=== PATIENT | female | born 1980 | race Caucasian/White ===

== ENCOUNTER 2024-05-16 20:53 | Emergency (ER) | payer MEDICARE, SELFPAY ==
[2024-05-16 21:29] VITALS: BP 99/64; PULSE 100; RESP 18; O2SAT 97; BMI 28.3
[2024-05-16 21:47] LABS: Microscopic, Urine URINE MICROSCOPIC (MICROSCOPIC)
--- NOTE | 2024-05-16 21:48 | HMH.EDGENADL ---
Discharge Plan Disposition Patient Disposition: Home, Self-Care Prescriptions Prescriptions: New cefdinir 300 mg capsule 300 mg PO BID 7 Days Qty: 14 0RF Referrals Follow up/Referrals: Provider,Referral, [Primary Care Provider] - See instructions Activity Restrictions/Add. Instructions Additional Instructions/Restrictions: Take your antibiotic twice daily for 7 days. This will treat your urinary tract infection. Call [facility], [facility], or [facility] neurosurgery to schedule follow-up appointment. Tell them that you had a shunt placed, were seen in the emergency department for headache on 05/16 and workup was negative. You will need to be followed up in case you need care for the shunt in the future. Call your family doctor to establish care for this visit to the emergency department and schedule follow-up within 48 hours to ensure improvement. If you have any worsening of your condition or any other concerning signs or symptoms, return to the emergency department or your primary care doctor for further evaluation. Clinical Impressions Clinical Impression: Urinary tract infection Instructions Patient Instructions: DI for Urinary Tract Infection (UTI), DI for Urinary Tract Infection in Children Print Language Print Language: Kiswahili Discharge ED Provider: Eduin Jara General Adult HPI <Tao Roach ([facility]), [employer]KER - Last Filed: 05/16/24 22:21> General Chief complaint: Urogenital-Female Stated complaint: poss UTI , severe pain in head Time Seen by Provider: 05/16/24 21:37 Mode of Arrival: Ambulatory Description of Symptoms (Recalled from ER Triage Doc. by RN): pt states she thinks she has a uti. [facility] but it has not gotten better. pt states shes had a fever today. Pt also complaining of right sided head pain in behind the right eye. pt has a vp platforms shunt. History of Present Illness HPI narrative: 43-year-old female presents for frequency, foul-smelling urine, urgency, and burning for over a week but is not getting any better. 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 Patient states that shunt was placed in 2008 due to Chiari malformation, patient states she has not been followed up because the doctor is no longer practicing Related Data Previous Rx's ?Medication ?Instructions ?Recorded cefdinir 300 mg capsule 300 mg PO BID 7 days #14 caps 05/17/24 Allergies Allergy/AdvReac Type Severity Reaction Status Date / Time deflazacort (From Emflaza) Allergy Unknown Verified 05/16/24 22:27 allergy reaction guaifenesin (From Robitussin) Allergy Unknown Verified 05/16/24 22:27 allergy reaction metformin (From Glucophage) Allergy Unknown Verified 05/16/24 22:27 allergy reaction PFSH <[facility] [employer] - Last Filed: 05/16/24 22:21> PFS Disclaimer: The information contained in this section may have been updated after the patient was seen, as this information can be updated by other users. Social History (Updated 05/16/24 @ 22:21 by Tao Roach ([facility]), [employer]) Smoking Status: Never smoker alcohol intake: never current occupational status: employed Travel in the last 8 weeks: None Have you lived/traveled outside [place] in past 30 days?: No Contact w/someone who lives/traveled outside US past 30 days?: No Exposure to someone with infectious disease in past 14 days?: No Do you have a fever (greater than 100.4 F or 38 C)?: No Have you tested positive for COVID-19: No Exposed to someone with COVID-19 in past 14 days?: No Do you have a sore throat?: No Do you have a cough?: No Do you have any weakness?: No Do you have any diarrhea?: No Are you experiencing any unusual bleeding?: No Do you have any muscle aches/pain?: No Do you have any abdominal pain?: No Are you experiencing loss of taste or smell?: No <[facility] [employer] - Last Filed: 05/16/24 22:21> ROS Obtained: Yes Systems reviewed as appropriate & no additional complaints except as documented Constitutional Constitutional: Reports system reviewed and no additional complaints, except as documented, Reports as per HPI, Reports fever(s) and Reports headache(s) Eyes Eyes: Reports system reviewed and no additional complaints, except as documented, Reports as per HPI and Reports eye pain ENT Ears, Nose, Mouth, and Throat: Reports headache(s) Neurologic Neurologic: Reports system reviewed and no additional complaints, except as documented, Reports as per HPI and Reports headache(s) Physical Exam <Tao Paulsonjarvis ([facility]), [employer]KER - Last Filed: 05/16/24 22:21> General General appearance: alert and in no apparent distress Head Head exam: atraumatic Eye Eye exam: Present normal appearance and PERRL ENT ENT exam: Present normal exam Respiratory Respiratory exam: Present normal lung sounds bilaterally Cardiovascular Cardiovascular exam: Present regular rate and normal rhythm Neurological Exam Neurological exam: Present alert and oriented X3 Skin Skin exam: Present warm Medical Decision Making <Ricardosukhiestephania Paulsonjarvis ([facility]), [employer]ER - Last Filed: 05/16/24 22:21> Medical Records Medical records reviewed: Yes I reviewed the patient's medical records. Screening: Per USPSTF and CDC recommendations, given the prevalence of disease in our region, it is our hospital?s policy to screen for HIV and viral Hepatitis for all patients aged 18 and over and those with ongoing risk factors. Pawan Inquiry Pt receiving controlled substance: No Pawan was queried for this patient: No Vital Signs: 05/16/24 21:29 05/16/24 21:57 05/16/24 22:00 Pulse Rate 94 H 91 H Pulse Rate [Left] 100 H Respiratory Rate 18 18 18 Blood Pressure 116/78 108/72 L Blood Pressure [Right Arm] 99/64 L Blood Pressure Mean 85 Blood Pressure Mean [Right Arm] 75 02 Sat by Pulse Oximetry 97 100 98 Oxygen Delivery Method Room Air Room Air Room Air 05/16/24 22:30 05/16/24 23:15 Pulse Rate 89 94 H Pulse Rate [Left] Respiratory Rate 16 16 Blood Pressure 112/71 84/52 L Blood Pressure [Right Arm] Blood Pressure Mean 88 Blood Pressure Mean [Right Arm] 02 Sat by Pulse Oximetry 96 97 Oxygen Delivery Method Room Air Lab Data Lab Results 05/16/24 21:40: Urine Color Yellow, Urine Appearance Cloudy, Urine pH 6.0, Ur Specific Temple 1.025, Urine Protein 2+ A, Urine Glucose (UA) Negative, Urine Ketones Trace, Urine Blood 1+ A, Urine Nitrate Negative, Urine Bilirubin Negative, Urine Urobilinogen 1.0, Ur Leukocyte Esterase 2+ A, Urine RBC Tntc, Urine WBC Tntc, Ur Squamous Epith Cells 20-50, Urine Bacteria 4+, Urine Yeast Occasional 05/16/24 23:08: WBC 15.3 H, RBC 4.08 L, Hgb 11.8 L, Hct 35.7 L, MCV 87.5, MCH 28.9, MCHC 33.1, RDW 13.6, Plt Count 210, MPV 9.7, Neut % (Auto) 82.5 H, Lymph % (Auto) 9.3 L, [place] % (Auto) 6.6, Eos % (Auto) 0.7, Baso % (Auto) 0.3, Neut # (Auto) 12.6 H, Lymph # (Auto) 1.4, [place] # (Auto) 1.0, Eos # (Auto) 0.1, Baso # (Auto) 0.0, Total Counted 100, Neutrophils % (Manual) 88 H, Lymphocytes % (Manual) 11, Monocytes % (Manual) 1 L, Platelet Estimate Normal, RBC Morphology Normal, Sodium 136, Potassium 3.3 L, Chloride 98, Carbon Dioxide 30, Anion Gap 11.3, BUN 24 H, Creatinine 1.30 H, Estimated Creat Clear 59, Estimated GFR 45 L, Est GFR ( Amer) 54 L, Glucose 124 H, Calcium 8.7, Total Bilirubin 0.5, AST 23, ALT 19, Alkaline Phosphatase 110, Total Protein 6.7, Albumin 3.2 L, Globulin 3.5 H, Albumin/Globulin Ratio 0.9 L 05/16/24 23:08 05/16/24 23:08 Orders (Tests/Meds): ED MEDICATIONS Discontinued Medications Generic Name Dose Route Start Last Admin Trade Name Freq PRN Reason Stop Dose Admin Acetaminophen 1,000 mg 05/16/24 22:20 05/16/24 22:34 Acetaminophen 1,000mg/100ml Vial IV 05/16/24 22:21 1,000 mg ONCE ONE Administration Cefdinir 300 mg 05/16/24 22:34 05/16/24 23:29 Cefdinir 300mg Capsule PO 05/16/24 22:35 300 mg ONCE ONE Administration Magnesium Sulfate 2 gm in 50 mls @ 50 mls/hr 05/16/24 22:20 05/16/24 22:34 Magnesium Sulfate 2gm/50ml Premix IV 05/16/24 23:19 50 mls/hr ONCE ONE Administration Lactated Ringer's 1,000 mls @ 999 mls/hr 05/16/24 22:20 05/16/24 22:34 Lactated Ringer's 1000 Ml Bag IV 05/16/24 23:20 999 mls/hr .Q1H1M ONE Administration Ketorolac Tromethamine 15 mg 05/16/24 22:20 05/16/24 22:34 Ketorolac 30mg/Ml Vial IV 05/16/24 22:21 15 mg ONCE ONE Administration Metoclopramide HCl 10 mg 05/16/24 22:20 05/16/24 22:34 Metoclopramide Hcl 10mg/2ml Vial IVP 05/16/24 22:21 10 mg ONCE ONE Administration ORDERS Category Date Time Status CT head/brain wo con Stat Cat Scan 05/16/24 21:54 Completed CBC w/Auto Diff [Complete Blood Count Auto Diff] Stat Lab 05/16/24 23:08 Completed CMP [Comprehensive Metabolic Panel] Stat Lab 05/16/24 23:08 Completed HIV Combo Routine Lab 05/16/24 23:08 Received Hepatitis C Ab Qual. W/ RFX Routine Lab 05/16/24 23:08 Received Urinalysis and Microscopic Stat Lab 05/16/24 21:40 Completed Urine Culture Stat Micro 05/16/24 21:40 Received <Eduin Jara MD - Last Filed: 05/17/24 00:10> Vital Signs: 05/16/24 21:29 05/16/24 21:57 05/16/24 22:00 Pulse Rate 94 H 91 H Pulse Rate [Left] 100 H Respiratory Rate 18 18 18 Blood Pressure 116/78 108/72 L Blood Pressure [Right Arm] 99/64 L Blood Pressure Mean 85 Blood Pressure Mean [Right Arm] 75 02 Sat by Pulse Oximetry 97 100 98 Oxygen Delivery Method Room Air Room Air Room Air 05/16/24 22:30 05/16/24 23:15 Pulse Rate 89 94 H Pulse Rate [Left] Respiratory Rate 16 16 Blood Pressure 112/71 84/52 L Blood Pressure [Right Arm] Blood Pressure Mean 88 Blood Pressure Mean [Right Arm] 02 Sat by Pulse Oximetry 96 97 Oxygen Delivery Method Room Air Lab Data Lab Results 05/16/24 21:40: Urine Color Yellow, Urine Appearance Cloudy, Urine pH 6.0, Ur Specific [place] 1.025, Urine Protein 2+ A, Urine Glucose (UA) Negative, Urine Ketones Trace, Urine Blood 1+ A, Urine Nitrate Negative, Urine Bilirubin Negative, Urine Urobilinogen 1.0, Ur Leukocyte Esterase 2+ A, Urine RBC Tntc, Urine WBC Tntc, Ur Squamous Epith Cells 20-50, Urine Bacteria 4+, Urine Yeast Occasional 05/16/24 23:08: WBC 15.3 H, RBC 4.08 L, Hgb 11.8 L, Hct 35.7 L, MCV 87.5, MCH 28.9, MCHC 33.1, RDW 13.6, Plt Count 210, MPV 9.7, Neut % (Auto) 82.5 H, Lymph % (Auto) 9.3 L, [place] % (Auto) 6.6, Eos % (Auto) 0.7, Baso % (Auto) 0.3, Neut # (Auto) 12.6 H, Lymph # (Auto) 1.4, [place] # (Auto) 1.0, Eos # (Auto) 0.1, Baso # (Auto) 0.0, Total Counted 100, Neutrophils % (Manual) 88 H, Lymphocytes % (Manual) 11, Monocytes % (Manual) 1 L, Platelet Estimate Normal, RBC Morphology Normal, Sodium 136, Potassium 3.3 L, Chloride 98, Carbon Dioxide 30, Anion Gap 11.3, BUN 24 H, Creatinine 1.30 H, Estimated Creat Clear 59, Estimated GFR 45 L, Est GFR ( Amer) 54 L, Glucose 124 H, Calcium 8.7, Total Bilirubin 0.5, AST 23, ALT 19, Alkaline Phosphatase 110, Total Protein 6.7, Albumin 3.2 L, Globulin 3.5 H, Albumin/Globulin Ratio 0.9 L Orders (Tests/Meds): ED MEDICATIONS Discontinued Medications Generic Name Dose Route Start Last Admin Trade Name Freq PRN Reason Stop Dose Admin Acetaminophen 1,000 mg 05/16/24 22:20 05/16/24 22:34 Acetaminophen 1,000mg/100ml Vial IV 05/16/24 22:21 1,000 mg ONCE ONE Administration Cefdinir 300 mg 05/16/24 22:34 05/16/24 23:29 Cefdinir 300mg Capsule PO 05/16/24 22:35 300 mg ONCE ONE Administration Magnesium Sulfate 2 gm in 50 mls @ 50 mls/hr 05/16/24 22:20 05/16/24 22:34 Magnesium Sulfate 2gm/50ml Premix IV 05/16/24 23:19 50 mls/hr ONCE ONE Administration Lactated Ringer's 1,000 mls @ 999 mls/hr 05/16/24 22:20 05/16/24 22:34 Lactated Ringer's 1000 Ml Bag IV 05/16/24 23:20 999 mls/hr .Q1H1M ONE Administration Ketorolac Tromethamine 15 mg 05/16/24 22:20 05/16/24 22:34 Ketorolac 30mg/Ml Vial IV 05/16/24 22:21 15 mg ONCE ONE Administration Metoclopramide HCl 10 mg 05/16/24 22:20 05/16/24 22:34 Metoclopramide Hcl 10mg/2ml Vial IVP 05/16/24 22:21 10 mg ONCE ONE Administration ORDERS Category Date Time Status CT head/brain wo con Stat Cat Scan 05/16/24 21:54 Completed CBC w/Auto Diff [Complete Blood Count Auto Diff] Stat Lab 05/16/24 23:08 Completed CMP [Comprehensive Metabolic Panel] Stat Lab 05/16/24 23:08 Completed HIV Combo Routine Lab 05/16/24 23:08 Received Hepatitis C Ab Qual. W/ RFX Routine Lab 05/16/24 23:08 Received Urinalysis and Microscopic Stat Lab 05/16/24 21:40 Completed Urine Culture Stat Micro 05/16/24 21:40 Received Medical Decision Narrative: This is a 43-year-old female history of Chiari malformation status post shunt placement presenting with multiple complaints. She states that she has been having urinary tract infection symptoms with burning. She has been trying to treated at home, it has not gone away. Patient also has auxiliary complaint of feeling like my shunt popped, when she turned her head and she has been having headache that has retrobulbar pain on the right side. No trauma, no vision changes, fevers, chills, discoordination, falls, etc. History obtained the patient. On arrival, she is clinically well-appearing, but states that she is photophobic. Answer questions appropriately, no acute distress. EOMs intact and full, pupils equal and reactive. NIHSS 0. Differential includes headache, migraine, shunt malfunction, urinary tract infection, among others. Patient was given IV fluids, migraine cocktail. Workup ordered. On independent TURP Tatian, mild leukocytosis 15.3 with mild neutrophilia. Patient has mild MIHAI with creatinine 1.3, but unknown baseline, so may be CKD. Has bacteria, white blood cells, leukocyte esterase and blood consistent with bacterial UTI. CT head was ordered and on independent interpretation, no ventriculomegaly, shunt appears to terminate in the ventricle and no abnormalities. On reevaluation, patient states that she is feeling better, headache has improved. Still no neurologic deficits. When questions about her neurologist and neurosurgeon, she does not have a neurologist, but has a neurosurgeon that she has not seen in numerous years who is now retired. It was recommended that she call either [facility] or [facility] to set up follow-up with neurosurgery in case she needs shunt revision or management in the future. She voiced her understanding. Because patient at baseline without signs or symptoms of clinical decompensation, deemed appropriate for discharge. Results were relayed to patient who voiced understanding and were agreeable to outpatient management and follow up. I discussed my clinical impression with patient and answered all questions. At this time, the evidence for any other entities in the differential is insufficient to warrant any further testing or ED observation. This was explained as well. Advisory was given that persistent or worsening symptoms require further evaluation. I confirmed the understanding of this discussion. Critical Care <Tao Roach ([facility]), [employer]ER - Last Filed: 05/16/24 22:21> Critical Care Time Critical Care Time: No
--- NOTE | 2024-05-16 21:54 | CT_ITS ---
PROCEDURE INFORMATION: Exam: CT Head Without Contrast Exam date and time: 05/16/2024 10:09 PM Age: 43 years old Clinical indication: Pain; Headache; Additional info: Shunt- AYALA eye pain TECHNIQUE: Imaging protocol: Computed tomography of the head without contrast. Radiation optimization: All CT scans at this facility use at least one of these dose optimization techniques: automated exposure control; mA and/or kV adjustment per patient size (includes targeted exams where dose is matched to clinical indication); or iterative reconstruction. COMPARISON: No relevant prior studies available. FINDINGS: Tubes, catheters and devices: A [employer] shunt catheter is noted extending from the posterior right calvarium anteriorly to the left with the tip located centered between the lateral ventricles. Brain: A large inferior posterior fossa CSF collection measuring 5.6 x 2.9 x 3.6 cm. No mass, mass effect or midline shift. No intracranial hemorrhage. Cerebral ventricles: The ventricles and subarachnoid spaces are within normal limits. No evidence of hydrocephalus. Paranasal sinuses: Visualized sinuses are unremarkable. No fluid levels. Mastoid air cells: Visualized mastoid air cells are well aerated. Bones: Large suboccipital craniotomy noted in the midline of the posterior fossa. Soft tissues: Unremarkable. IMPRESSION: 1. No definite acute abnormality. 2. Large posterior fossa craniotomy. Large CSF collection in the inferior aspect of the posterior fossa adjacent to the craniotomy site presumably residual postoperative change. 3. [employer] shunt catheter noted that extends to the midline between the lateral ventricles. It is not certain if the shunt catheter actually extends into a ventricle from the available images. The shunt might extend into the medial margin of the left lateral ventricle although this is not definite. Comparison with any older CTs if available to ensure stability of the shunt catheter position advised. In the absence of prior studies that can be obtained for comparison consider short-term follow-up CT or MRI scan to ensure stability of the ventricles especially if persistent or worsening symptoms.
[2024-05-16 21:57] VITALS: BP 116/78; PULSE 94; RESP 18; O2SAT 100
[2024-05-16 21:57] LABS: Blood, Urine 1+ (Negative); Color,Urine YELLOW (Yellow); Glucose,Urine (UA) Negative (Negative); Ketones,Urine TRACE (Negative); Leukocyte Esterase,Urine 2+ (Negative); Nitrate,Urine Negative (Negative); Protein,Urine 2+ (Negative); Specific Gravity, Urine 1.025 (1.005-1.030)
[2024-05-16 22:00] VITALS: BP 108/72; PULSE 91; RESP 18; O2SAT 98
[2024-05-16 22:04] LABS: Appearance,Urine Cloudy (Clear)
[2024-05-16 22:06] LABS: Bilirubin,Urine Negative (Negative)
[2024-05-16 22:30] VITALS: BP 112/71; PULSE 89; RESP 16; O2SAT 96
[2024-05-16 22:34] LABS: RBC,Urine TNTC #/hpf (0-3); Squamous Epithelial Cell,Urine 20-50 #/hpf (0-5); WBC,Urine TNTC #/hpf (0-3)
[2024-05-16] MEDS: MAGNESIUM SULFATE IN WATER 2 GM/50 ML PIGGYBACK IV (22:34)
[2024-05-16] MEDS: KETOROLAC 30MG/ML VIAL 15 MG IV (22:34)
[2024-05-16] MEDS: METOCLOPRAMIDE HCL 10MG/2ML VIAL 10 MG IVP (22:34)
[2024-05-16] MEDS: ACETAMINOPHEN 1,000MG/100ML VIAL 1000 MG IV (22:34)
[2024-05-16] MEDS: LACTATED RINGERS 1000ML 1,000 ML 999 ML IV (22:34)
[2024-05-16 22:35] LABS: Bacteria,Urine 4+ /lpf; Yeast,Urine Occasional /lpf
[2024-05-16 23:15] VITALS: BP 84/52; PULSE 94; RESP 16; O2SAT 97
[2024-05-16 23:16] LABS: Basophils % 0.3 % (0.1-2.0); Eosinophils # 0.1 K/mm3 (0.0-0.4); Eosinophils % 0.7 % (0.1-12.0); Hematocrit 35.7 % (37.0-47.0); Hemoglobin 11.8 g/dL (12.2-16.2); Lymphocytes # 1.4 K/mm3 (0.7-4.5); Lymphocytes % 9.3 % (10-50); Mean Corpuscular HGB Conc 33.1 g/dL (31.8-35.4); Mean Corpuscular Hemoglobin 28.9 pg (27.0-31.2); Mean Corpuscular Volume 87.5 fl (81-99); Mean Platelet Volume 9.7 fl (7.4-10.4); Monocytes % 6.6 % (1.7-9.3); Neutrophils # 12.6 K/mm3 (1.8-7.8); Neutrophils % 82.5 % (37.0-80.0); Nucleated Red Blood Cells # 0 10^3/uL; Nucleated Red Blood Cells % 0 %; Platelet Count 210 K/mm3 (142-424); Red Blood Count 4.08 M/mm3 (4.20-5.40); Red Cell Distribution Width 13.6 % (11.5-17.5); Red Cell Distribution Width-SD 43.4 fL; White Blood Count 15.3 K/mm3 (4.8-10.8)
[2024-05-16 23:19] LABS: MANUAL DIFFERENTIAL MANUAL DIFFERENTIAL (MANUAL DIFF)
[2024-05-16 23:25] LABS: Alanine Aminotransferase 19 U/L (12-78); Albumin Level 3.2 g/dl (3.5-5.0); Albumin/Globulin Ratio 0.9 (1.1-1.8); Alkaline Phosphatase 110 U/L (38-126); Anion Gap 11.3 mEq/L (5-15); Aspartate Amino Transferase 23 U/L (14-36); Bilirubin,Total 0.5 mg/dl (0.2-1.3); Blood Urea Nitrogen 24 mg/dl (7-17); Calcium 8.7 mg/dl (8.4-10.2); Carbon Dioxide 30 mmol/L (22.0-30.0); Chloride 98 mmol/L (98-107); Creatinine Clearance Estimated 59 mL/min (50-200); Estimated Glomerular Filt Rate 45 ml/min (>60); GFR (African American) 54 ML/MIN (>60); Globulin 3.5 g/dL (1.3-3.2); Glucose 124 mg/dl (74-100); Potassium 3.3 mmoL/L (3.5-5.1); Sodium 136 mmol/L (136-145); Total Protein,Serum 6.7 g/dl (6.3-8.2)
[2024-05-16] MEDS: CEFDINIR 300MG CAPSULE 300 MG PO (23:29)
[2024-05-16 23:40] VITALS: BP 88/53; PULSE 80; RESP 16; O2SAT 99
[2024-05-16 23:43] LABS: Lymphocytes % 11 % (10-50); Monocytes % 1 % (2-9); Neutrophils % 88 % (42-76); Total Cells Counted 100
[2024-05-16 23:45] LABS: Platelet Estimate Normal; RBC Morphology Normal
[2024-05-17] VITALS: BP 86/52; PULSE 78; RESP 13; O2SAT 96
[2024-05-17 00:20] VITALS: BP 102/73; PULSE 73; RESP 18; TEMP 36.7; O2SAT 100
[2024-05-17 00:22] LABS: Hepatitis C Ab Qual. W/ RFX NEGATIVE (Negative)
--- NOTE | 2024-05-17 00:22 | PC.NURSE ---
discontinued IV. catheter tip intact. bleeding controlled.
[2024-05-17 00:27] LABS: HIV Combo NEGATIVE (Negative)
== END 2024-05-17 00:22 | disposition home or self-care (01) ==
PROVIDERS: Nurse Practitioner Family; Emergency Provider Emergency Medicine
DX: N39.0 Urinary tract infection, site not specified (principal); R30.0 Dysuria; R39.15 Urgency of urination; R51.9 Headache, unspecified; Z11.59 Encounter for screening for other viral diseases; Z11.4 Encounter for screening for human immunodeficiency virus [HIV]
CPT/HCPCS: 96365; 96375; 99284; 70450; 80053; 81001; 85007; 85025; 85027; 86803; 87086; 87088; 87186; 87389; J0131; J1885; J2765; J3475; J7120